=== PATIENT | female | born 1935 | race Caucasian/White ===

== ENCOUNTER 2018-11-18 12:47 | Inpatient (IN) | payer OTHER, MEDICARE ==
[~2018-11-18] VITALS: Ht 152.4 cm; Wt 48.8 kg
[2018-11-18 12:47] VITALS: BP 201/111
[2018-11-18 13:08] LABS: URINE BILIRUBIN NEGATIVE (Negative); URINE BLOOD 2+ (Negative); URINE CLARITY CLEAR; URINE COLOR YELLOW; URINE GLUCOSE-RANDOM* 3+ (Negative); URINE KETONES TRACE (Negative); URINE LEUKOCYTES-REFLEX NEGATIVE (Negative); URINE NITRITE-REFLEX NEGATIVE (Negative); URINE PROTEIN (DIPSTICK) 2+ (Negative); URINE UROBILINOGEN 0.2 E.U./dl (0.2-1.0)
[2018-11-18 13:09] LABS: ABSOLUTE NEUTROPHILS 3.9 thou/uL (1.4-8.2); BASOPHILS 0.3 % (0.0-2.0); EOSINOPHILS 1.5 % (0.0-3.0); HEMATOCRIT 33.3 % (37.0-47.0); HEMOGLOBIN 11.4 gm/dL (12.0-15.0); LYMPHOCYTES 22.1 % (24.0-44.0); MCH 31.4 pg (26.0-34.0); MCHC 34.2 g/dL (28.0-37.0); MCV 91.8 fL (80.0-100.0); MONOCYTES 8.7 % (1.0-8.0); PLATELET COUNT 325 thou/uL (150-400); POLYS 67.4 % (36.0-66.0); RBC 3.63 mil/uL (4.20-5.00); RDW 14.7 % (10.5-14.5); WBC 5.7 thou/uL (4.0-11.0)
[2018-11-18 13:15] LABS: ANION GAP 11 mmol/L (7-16); BUN 17 mg/dL (7-18); CALCIUM 9.1 mg/dL (8.5-10.1); CHLORIDE 88 mmol/L (98-107); CO2 27 mmol/L (21-32); CREATININE 0.7 mg/dL (0.6-1.0); GLUCOSE 245 mg/dL (74-106); POTASSIUM 3.6 mmol/L (3.5-5.1); SODIUM 126 mmol/L (136-145)
[2018-11-18 13:20] LABS: BACTERIA-REFLEX 1-9 Few /HPF (None Seen); CASTS None Seen /LPF (None Seen); CRYSTALS None Seen /LPF (None Seen); MUCUS >6 Heavy strn/LPF (None Seen); SQUAMOUS 4-10 Moderate /LPF (0-3); URINE RBC >20 Many /HPF (0-2); URINE WBC-REFLEX 0-5 Rare /HPF (0-5)
[2018-11-18 13:25] LABS: ALBUMIN 2.9 g/dL (3.4-5.0); MAGNESIUM 1.2 mg/dL (1.8-2.4); SGOT 25 U/L (15-37); SGPT 20 U/L (30-65); TOTAL BILIRUBIN 0.3 mg/dL (<0.1-1.0); TOTAL PROTEIN 7.8 g/dL (6.4-8.2); TROPONIN-I <0.06 ng/mL (<0.06)
[2018-11-18] MEDS ORDERED: METFORMIN HCL500 M3 PO (13:33)
[2018-11-18] MEDS ORDERED: COZAAR 25 MG TA25 M1 PO (13:34)
[2018-11-18] MEDS ORDERED: SENNA PLUS TAB1 EACH PO (13:34)
[2018-11-18] MEDS ORDERED: AMARYL2 M1 PO (13:34)
[2018-11-18] MEDS ORDERED: NEXIUM2.5 MG PO (13:34)
[2018-11-18] MEDS ORDERED: CENTRUM SILVER1 EAC6 PO (13:35)
[2018-11-18] MEDS ORDERED: OCUVITE TABLET1 EAC1 PO (13:35)
[2018-11-18] MEDS ORDERED: SUPER B-50 COM1 EACH PO (13:35)
[2018-11-18] MEDS ORDERED: CALTRATE 600+D1 EAC1 PO (13:35)
[2018-11-18] MEDS ORDERED: DULCOLAX STOOL100 M1 PO (13:35)
[2018-11-18] MEDS ORDERED: EYE DROP15 ML OPHTHALMIC (13:36)
[2018-11-18] MEDS ORDERED: PROBIOTIC1 EAC7 PO (13:36)
[2018-11-18 16:50] VITALS: BP 166/77
[2018-11-18 17:44] VITALS: BP 164/78
[2018-11-18 17:58] VITALS: BP 146/80
[2018-11-18 19:19] VITALS: BP 158/80
--- NOTE | 2018-11-18 19:20 | NUR ---
WTNESSED FALL BY THIS NURSE AND ER CHARGE NURSE GUSTAVO AROUND 1645. PT WAS NONVERBAL AND LETHARGIC PRIOR TO THE FALL, AND AFTER. LEFT SIDE HEMATOMA NOTED ON THE LEFT SIDE OF HEAD. ER PHYSICIAN AND PT PCP BOTH ASSESSED PT AT BEDSIDE IN ER POST FALL. CT OF HEAD ORDRED AND DONE. PT SISTER WAS STANDING OUTSIDE OF PT ROOM DURING FALL. NO OTHER FAMILY MEMBERS CONTACTED.
[2018-11-19] VITALS: BP 116/49
--- NOTE | 2018-11-19 02:52 | NUR ---
1900 PATIENT TO FLOOR PER CART AND TRANSFERED TO BED. FAMILY AT BEDSIDE. UNRESPONSIVE, PUPILS SLUGGISH, NO RESPONSE TO PAIN, NO MOVEMENTS. FAMILY ORIENTED TO ROOM AND FLOOR POLICIES. TURNED AND RESPOSITIONED FOR SKIN CARE AND COMFORT. RIGHT GREAT TOE DRESSING DRY AND INTACT. FAMILY REQUEST TO PEEL BACK TAKE PICTURE AND REPLACE NOT TO CHANGE. 2230 FAMILY WENT HOME. 0200 PICUTRE TAKEN OF RIGHT GREAT TOE. NO DRAINAGE NOTED. PATIENT WITH REACTION TO PAINFUL STIMULI. WILL NOT OPEN EYES BUT SQUEEZES THEM SHUT. MOVING EXTREMITIES SLOWLY WITH WEAK AUTOMATION TENDER AND PUSHES AGAINST HANDS. INCONTINENT AND CHANGES. PERICARE DONE. 0305 SLEEPING QUIETLY BUT IS NOW MOANING WHEN TURNED. NOT PROGRESSING TOWARDS DISCHARGE GOALS. WORKING ON GOALS AND PLAN OF CARE FOR NOC. CONTINUE TO MAINTAIN SAFE ENVIRONMENT AND WATCH CLOSELY.
[2018-11-19 03:48] VITALS: BP 112/45
[2018-11-19 05:30] LABS: CALCIUM 8.1 mg/dL (8.5-10.1); CREATININE 1.1 mg/dL (0.6-1.0); MAGNESIUM 2.1 mg/dL (1.8-2.4)
[2018-11-19 05:32] LABS: HEMATOCRIT 27.4 % (37.0-47.0); HEMOGLOBIN 9.7 gm/dL (12.0-15.0); MCHC 35.3 g/dL (28.0-37.0); MCV 90.6 fL (80.0-100.0); RBC 3.03 mil/uL (4.20-5.00); RDW 14.5 % (10.5-14.5); WBC 5.2 thou/uL (4.0-11.0)
[2018-11-19 05:42] LABS: POTASSIUM 2.8 mmol/L (3.5-5.1)
[2018-11-19 07:32] VITALS: BP 111/46
--- NOTE | 2018-11-19 07:48 | H ---
[facility] [place] [address] HISTORY AND PHYSICAL Name: MATHEUS TRISTAN Room #: 352-P ADM IN M.R.#: [id number] Admission: 11/18/18 Attend Phys: Daniel Rome MD Discharge: Date of : 34 Report #: [id number] THIS REPORT FOR: //name// CC: Daniel Rome DATE OF SERVICE: 11/18/2018 CHIEF COMPLAINT: Confusion. HISTORY OF PRESENT ILLNESS: The patient is an 83-year-old female who was brought to the Emergency Room by EMS today with her sister with altered mental status. She noted this morning that she was feeling weak. Her sister reported that over the last several days, her blood sugars have been a little higher and actually preparing to come and see me in the office this afternoon; however, her sister said as they were preparing that the patient was more confused. She was less verbally responsive. She seemed to be staring off with no focus then she became marginally arousable and at that point, her sister called for an ambulance and brought her to the ER. She had had a previous fall at home. Her sister said onto her right knee and thigh had a mild abrasion, but things seemed to change around noon today. PAST MEDICAL HISTORY: Diabetes type 2, hypertension, chronic hyponatremia. 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 She just completed a course of 4 weeks of IV antibiotics for osteomyelitis of the right first toe related to a previous callus debridement 6 months ago or so, she has had arterial assessment of the right leg, which was unremarkable and has been receiving IV antibiotics, Podiatry and wound care at [facility]. PAST SURGICAL HISTORY: As above. FAMILY HISTORY: Noncontributory. SOCIAL HISTORY: She lives with her sister. No chronic alcohol or tobacco use. ALLERGIES: SULFA CAUSED HYPONATREMIA AND CEPHALEXIN CAUSED HEADACHE. MEDICATIONS: Metformin, Amaryl, Cozaar, Nexium, Senokot, Colace, Centrum, B complex, vitamin D3, Ocuvite eyedrops, probiotic. REVIEW OF SYSTEMS: She is unable to give review. She just received doses of Ativan. OBJECTIVE: PHYSICAL EXAMINATION: VITAL SIGNS: Temperature 37.1, pulse 112, respirations 16, blood pressure [address] [address] HISTORY AND PHYSICAL Name: MATHEUS TRISTAN Room #: [address] [place] [address] IN .R.#: [id number] Admission: 11/18/18 Attend Phys: Daniel Rome MD Discharge: Date of : 34 Report #: [id number] 164/78, O2 sat 98% on room air. GENERAL: She is somnolent, in no distress. HEAD AND NECK: She has some dried blood on her tongue and lips. She apparently has bit her tongue. HEART: Tachycardic, regular rhythm. LUNGS: Clear to auscultation. ABDOMEN: Soft, normoactive bowel sounds. No rebound. EXTREMITIES: No edema. The right first toe has an opening into the base. There is no redness or drainage. NEUROLOGIC: Could not get her to follow any type of neuro exam. She does have a hematoma on the left posterior parietal area on the scalp. LABORATORY DATA: Urinalysis had proteins, ketones, blood, rbc's, a few white cells, bacteria and mucus. Sodium was 126, BUN and creatinine normal. Lactate a little high at 3.1, magnesium 1.2. White count was 5.7 with only a slight shift of 67% neutrophils. CT head was unremarkable. X-ray of the foot shows osteopenia. Chest x-ray suggests just atelectasis. ASSESSMENT: 1. Metabolic encephalopathy. 2. Cystitis. 3. Chronic hyponatremia. 4. Hypomagnesemia. 5. Hypertension. 6. Diabetes type 2. 7. Chronic nonhealing wound to the right first toe. PLAN: She will be admitted for IV antibiotics and IV fluid support for now. She has received electrolyte supplementation in the ER. I have spoken to her sister at the bedside. I confirmed with her Infectious Disease office that she was receiving daptomycin 300 mg IV daily. Rocephin 1 gram IV daily and Metronidazole 500 mg p.o. daily for the last 4 weeks, which she just completed on 11/16/2018. She had a PICC removed at that time. Her sister said she has had 1-2 loose bowel movements, but no recent complaints of abdominal pain or uncontrolled diarrhea. The consideration would be a new urinary source of infection versus a possible line infection versus electrolyte disturbance contributing to her altered mental status. She requires hospital admission. <ELECTRONICALLY SIGNED> By: Daniel Rome MD 11/19/18 0748 1706 1834 Daniel Rome MD /nt
--- NOTE | 2018-11-19 10:17 | EKG ---
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
[2018-11-19 12:17] VITALS: BP 147/55
[2018-11-19 15:07] LABS: CALCIUM 8.2 mg/dL (8.5-10.1); CREATININE 1.2 mg/dL (0.6-1.0); POTASSIUM 3.5 mmol/L (3.5-5.1)
--- NOTE | 2018-11-19 16:31 | NUR ---
ASSUMED CARE OF PATIENT AT 0700. VITALS STABLE. PATIENT MORE ALERT AND AROUSABLE TODAY THAN PREVIOUS SHIFT. PATIENT RECIEVED 40MEQ OF POTASSIUM TODAY AND PATIENT'S POTASSIUM ON LAST LAB DRAW IS 3.5. PATIENT TOLERATED IV ANTIBIOTICS AND POTASSIUM WELL. PATIENT HARD OF HEARING, WEARS HEARING AIDS THAT WERE NOT WITH PATIENT. MAKING PROGRESS TOWARDS DISCHAGE GOALS.
[2018-11-19 19:18] VITALS: BP 132/62
[2018-11-20 03:43] VITALS: BP 140/63
--- NOTE | 2018-11-20 04:16 | NUR ---
SLEPT PART OF SHIFT. DENIES COMPLAINTS OF PAIN. INCONTINENT X1 OF URINE. GOOD PERICARE DONE AND BARRIER CREAM USED. RADHA AREA AND COCCYX RED. TURNED FOR COMFORT AND SKIN CARE. PATIENT DOES TURN AT TIMES BY SELF. WORKING ON GOALS AND PLAN OF CARE FOR NOC. ORIENTED TO SELF, SWALLOWS WITHOUT PROBLEMS. PROGRESSING SLOWLY TOWARDS DISCHARGE GOALS.
[2018-11-20 05:17] LABS: CALCIUM 8.3 mg/dL (8.5-10.1); POTASSIUM 3.5 mmol/L (3.5-5.1)
[2018-11-20 05:39] LABS: HEMATOCRIT 27.6 % (37.0-47.0); HEMOGLOBIN 9.6 gm/dL (12.0-15.0); MCH 31.9 pg (26.0-34.0); MCHC 34.7 g/dL (28.0-37.0); RDW 14.3 % (10.5-14.5); WBC 5.3 thou/uL (4.0-11.0)
[2018-11-20 09:08] VITALS: BP 149/72
[2018-11-20 11:24] VITALS: BP 145/65
--- NOTE | 2018-11-20 15:03 | NUR ---
ASSUMED CARE OF PT AT 0700. PT AOX2. EATING WELL. INCONTINENT. NOW COMPLAINING OF LOWER BACK PAIN - PHYSICIAN NOTIFIED - XR LUMBAR SHOWING ACUTE T11 COMPRESSION FRACTURE. PATIENT NAUSEATED AT TIMES - RELIEVED WITH ZOFRAN. BLOOD SUGARS HIGH BUT SHOWING IMPROVEMENT. HOME MEDS RESUMED. FAMILY AT BEDSIDE THROUGHOUT SHIFT, AGREEABLE WITH POC. PT PROGRESSING TOWARD POC GOALS.
--- NOTE | 2018-11-20 15:45 | HC ---
[facility] [place] [address] CONSULTATION Name: MATHEUS TRISTAN Room #: 352-P ADM IN M.R.#: [id number] Admission: 11/18/18 Attend Phys: Daniel Rome MD Discharge: Date of : 34 Report #: [id number] THIS REPORT FOR: //name// CC: Daniel Rome DATE OF SERVICE: 11/19/2018 WOUND CARE CONSULTATION NOTE REASON FOR CONSULTATION: Nonhealing diabetic foot ulcer of right lateral great toe. HISTORY OF PRESENT ILLNESS: The patient is an 83-year-old woman admitted to the Emergency Room for altered mental status, metabolic encephalopathy from chronic hyponatremia. Ulcer, rule out sepsis. The patient is attended by her niece and sister. The patient is a long-term wound care patient at [facility] attended by wound care physician, Dr. Lisa Ng. The patient has diabetes mellitus type 2 and diabetic nephropathy. History given by the family is that the patient over 6 months ago had a diabetic shoe which itself caused a diabetic, neuropathic ulcer of the lateral aspect of the right great toe. This was caused by the shoe itself. This resulted in a deep wound of the foot and osteomyelitis of the toe. The patient has been treated with approximately 4 weeks of IV antibiotics by Dr. Bernabe Moraes for osteomyelitis of the foot. She had extensive wound care by Dr. Lisa Ng including use of skin substitute such as Dermagraft. The patient did have noninvasive arterial testing of the lower extremities done at [facility] with bilateral lower extremity arterial Doppler on 10/07/2018 showing normal ankle brachial indices bilaterally. There was no evidence of hemodynamically significant stenosis in the right lower extremity arterial system. In the right lower extremity, popliteal artery had a velocity of 117 cm/sec. Anterior tibial had a velocity of 151 cm/sec. Dorsalis pedis 98 cm/sec. Right ankle brachial index was 1.03 in the dorsalis pedis and 0.72 in the posterior tibial. The patient was brought now to the Emergency Room for altered mental status and immobility related possibly to hyponatremia and rule out sepsis. Family states the patient is currently in intensive wound care at [facility] and has scheduled wound care appointments. PAST MEDICAL HISTORY: 1. Diabetes mellitus type 2 with diabetic nephropathy. 2. Hypertension. 3. Chronic hyponatremia. 4. Immobility. 5. History of cystitis. 6. Hypomagnesemia. 7. Hypertension. SOCIAL HISTORY: The patient lives with her sister. No alcohol or tobacco use. [address] [address] CONSULTATION Name: HECKMATHEUS HAYWOOD Room #: 352-P [facility] IN .R.#: [id number] Admission: 11/18/18 Attend Phys: Daniel Rome MD Discharge: Date of : 34 Report #: [id number] MEDICATIONS: Include metformin, Amaryl, Cozaar, Nexium, Senokot, Colace, Centrum, B-complex vitamin, vitamin D3, Ocuvite eyedrops and probiotics. The patient just finished a course of IV antibiotics for osteomyelitis of the right great toe. REVIEW OF SYSTEMS: Not obtainable. PHYSICAL EXAMINATION: GENERAL: Shows an elderly woman, resting comfortably. HEENT: Mucous membranes are moist. NECK: Supple. ABDOMEN: Soft. EXTREMITIES: Lower extremity exam shows a defect of the lateral aspect of the right great toe. This measures approximately 1.5 cm x 1 cm x 0.5 cm deep. There is dry non-discolored eschar at the base of the wound. There is no cellulitis. There is no drainage. Wound appears chronic. IMPRESSION: 1. Admission for altered mental status and hyponatremia. 2. Diabetes mellitus type 2 with peripheral neuropathy. 3. Rule out sepsis, possible complicated urinary tract infection causing sepsis. 4. History of diabetic foot ulcer of the right great toe with osteomyelitis. Osteomyelitis has been treated with IV antibiotics. Wound is now stable with no drainage, no sign of cellulitis and no obvious open wound with dry crusted eschar. This wound is stable, does not require treatment while in the hospital. We will simply treat by offloading with Optifoam foam pad and diabetic shoe. Toe wound is not the source for sepsis. The patient will return to see her wound care physician, Dr. Lisa Ng at [facility] for outpatient wound care as soon as she is discharged from the hospital here and we will not actively pursue further diagnostic or therapeutic measures for the toe during the hospitalization. <ELECTRONICALLY SIGNED> By: Deion Baugh MD 11/20/18 1545 0847 0936 Deion Baugh MD /nt
[2018-11-20 16:53] VITALS: BP 178/82
[2018-11-20 19:23] VITALS: BP 113/54
[2018-11-21 01:05] LABS: GLYCOHEMOGLOBIN (HGB A1C) 7.9 % (4.8-5.6)
[2018-11-21 03:51] VITALS: BP 158/64
--- NOTE | 2018-11-21 04:16 | NUR ---
Pt. has slept well during the night. orineted to person only. [place] and wears hearing aid. She has been repositioned for comfort. Incontinent of bladder. Able to help turn. Dressing on right foot dry and intact. Ortho shoe in place. Will continue to monitor.
[2018-11-21 07:22] VITALS: BP 188/84
[2018-11-21 10:22] LABS: CALCIUM 7.9 mg/dL (8.5-10.1); CREATININE 0.9 mg/dL (0.6-1.0); POTASSIUM 3.5 mmol/L (3.5-5.1)
[2018-11-21 11:26] VITALS: BP 182/82
--- NOTE | 2018-11-21 14:15 | NUR ---
INITIAL ASSESSMENT: Received consult for discharge planning--possible placement. NOAH reviewed chart and spoke with nursing and attending physician. Pt was admitted from home due to hyperglycemia/AMS. Pt with hx of recent falls at home. Pt with T11 compression fx. PT/OT/ST ordered to evaluate pt. [facility] consult ordered to evaluate pt for admission to in acute rehab. NOAH met with pt and her sister at bedside. Introduced role of SW. Pt is alert/orientated. Pt lives at home with her sister, who is in good health and able to assist as needed. Pt has a cane, walker and w/c at home. Pt's sister states that pt is relying on her w/c and has not been ambulating very much. There is a ramp to get into their home. No steps inside. Pt has used [facility] in the past. Pt's PCP is Dr. Daniel Rome. NOAH discussed post-acute placement with pt's sister. Pt's sister is hopeful that [facility] will accept pt. NOAH provided pt's sister with list of SNFs for review as well. Awaiting input from [facility]. NOAH is following to assist as needed with discharge planning.
[2018-11-21 15:47] VITALS: BP 178/77
[2018-11-21] MEDS ORDERED: COLACE100 MG PO (17:15)
[2018-11-21 19:39] VITALS: BP 178/77
[2018-11-22 03:29] VITALS: BP 123/65
--- NOTE | 2018-11-22 06:22 | NUR ---
FOLLOWING POC WITH [facility]. PT IS A/OX2 BUT HAS SOME CONFUSION. PT SPEAKS WELSH/TELUGU. BED BOUND AND HAS DIABETIC ULCER ON R GREAT TOE. PT IS INCONTINENT TO B/B. VSS AND TELE MONITOR PT RUNS SR. PT CAN TURN HERSELF IN BED. HOURLY ROUNDING.
[2018-11-22 07:50] VITALS: BP 148/50
--- NOTE | 2018-11-22 11:19 | NUR ---
PATIENT SEEN BY DR. TOM ON 11/21/18. AWAITING COMPLETION OF ALL THERAPY EVALUATIONS. WILL CONTINUE TO FOLLOW. THANK YOU FOR THIS REFERRAL.
[2018-11-22 11:24] VITALS: BP 166/59
--- NOTE | 2018-11-22 12:42 | NUR ---
SW reviewed chart and spoke with nursing and attending physician. Pt had video swallow earlier today. Awaiting input from [facility] at this time. SW updated pt's sister at bedside. Pt's family is hopeful for pt to go to [facility]. SW is following to assist as needed with discharge planning.
[2018-11-22] MEDS ORDERED: ACETAMINOPHEN325 M1 PO (13:07)
[2018-11-22 16:35] VITALS: BP 163/61
--- NOTE | 2018-11-22 16:56 | NUR ---
Assumed care approx. 0700 this AM. Patient oriented to self and place. Patient feeding self independently with set up help. Swallow study completed with results fine per OT, but still continue to monitor for aspiration precautions. Patient up with gait belt and walker x1 with therapy, refusing to sit in recliner. Picture taken of wound on right great toe to prepare for discharge. Wound care completed by Dr. Taylor and Josue from wound care. Plan for patient to advance to [address] [place] [address] rehab today when room is ready. Will continue to monitor. Patient progressing toward plan of care.
--- NOTE | 2018-11-23 07:47 | P ---
[facility] [place] [address] PROCEDURE REPORT Name: MATHEUS TRISTAN Room #: 352-P [facility] IN M.R.#: [id number] Admission: 11/18/18 Attend Phys: Daniel Rome MD Discharge: 11/22/18 Date of : 34 Report #: [id number] THIS REPORT FOR: //name// CC: Daniel Rome DATE OF SERVICE: 11/22/2018 CHIEF COMPLAINT: Diabetic neuropathic ulcerations to the right great toe. POSTPROCEDURE DIAGNOSIS: Diabetic neuropathic ulcerations to the right great toe. PROCEDURE PERFORMED: Sharp full thickness surgical debridement of the ulceration of the right great toe. Preprocedure measurements of the ulceration were 0.5 x 0.3 x 0.1 cm. Postprocedure measurements 1.0 x 0.3 x 0.2 cm. After obtaining verbal consent with the patient and her daughter at the bedside, the area was prepped and draped in usual sterile fashion. No anesthesia was required. I have used a #15 bladed scalpel and have carefully removed both skin and subcutaneous tissue down to a healthy clean bleeding base. The patient tolerated the procedure well with no pain. Estimated blood loss was less than 1 mL. COMPLICATIONS: None. <ELECTRONICALLY SIGNED> By: Lizandro Taylor MD 11/23/18 0747 1702 0427 Lizandro Taylor MD /nt
--- NOTE | 2018-11-23 09:17 | D ---
[facility] [place] [address] DISCHARGE SUMMARY Name: MARIA R HERMATHEUS Room #: 352-P [facility] IN M.R.#: [id number] Admission: 11/18/18 Attend Phys: Daniel Rome MD Discharge: 11/22/18 Date of : 34 Report #: [id number] THIS REPORT FOR: //name// CC: Daniel Rome FINAL DIAGNOSES: 1. Acute metabolic encephalopathy, unclear etiology. 2. Acute T11 vertebral compression fracture. 3. Diabetes type 2. 4. Nonhealing wound to the right first toe. HOSPITAL COURSE: The patient was admitted through the ER from home with altered mental status. Working diagnosis at that time was infection and possible urinary source or related PICC line source that had been removed 2 days prior. She previously completed approximately 4 weeks of IV antibiotics as an outpatient through [facility] for osteomyelitis of an open wound on the right toe. Urine and blood cultures were negative. She was followed by Infectious Disease Service and eventually antibiotics were discontinued. Urinary antigens for pneumonia issues were negative as well. Her hyponatremia was treated with normal saline and then resolved and sodium was 133 to 134 at the time of discharge. Her mental status improved by the end of the second day once the Ativan had worn off from the ER. There was no definitive source identified for her acute change in mental status, but she was back to baseline. PHYSICAL EXAMINATION: GENERAL: On the day of discharge, she was awake and alert. VITAL SIGNS: Stable. LUNGS: Clear. HEART: Regular. ABDOMEN: Soft, normoactive bowel sounds. EXTREMITIES: No edema with the right first toe wound dressed. DISPOSITION: She will be transferred to [address] [place] [address] Inpatient Rehabilitation under the care of Dr. Barron. I will follow her stay there. She will have speech, occupational and physical therapy. She had previously passed a swallow test. I have ordered her transfer medications. <ELECTRONICALLY SIGNED> By: Daniel Rome MD 11/23/18 0917 1325 1413 Daniel Rome MD /nt
--- NOTE | 2018-11-30 14:33 | HC ---
[facility] [place] [address] CONSULTATION Name: MATHEUS TRISTAN Room #: 352-P [facility] IN M.R.#: [id number] Admission: 11/18/18 Attend Phys: Daniel Rome MD Discharge: 11/22/18 Date of : 34 Report #: [id number] THIS REPORT FOR: //name// CC: Daniel Rome DATE OF SERVICE: 11/21/2018 HISTORY OF PRESENT ILLNESS: The patient is an 83-year-old female admitted with mental status changes, elevated blood sugar, decreased verbalizations, diagnosed with a metabolic encephalopathy with cystitis, chronic hyponatremia, hypomagnesemia, and hypertension. She is noted to have a T11 compression fracture. She has right first toe osteomyelitis and has been on IV antibiotics. She has been noted to have a functional decline with her metabolic encephalopathy and has generalized weakness and debilitation as well. We are seeing her in Rehabilitation Medicine consultation. 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 MEDICATIONS: Please see the full medication listing. FAMILY HISTORY: Noncontributory. ALLERGIES: SULFA CAUSED HYPONATREMIA AND KEFLEX CAUSED HEADACHE. SOCIAL HISTORY: She lives with her sister and her niece, apparently utilized a cane or walker or wheelchair premorbidly, but is not ambulated much and has been more and more wheelchair bound. She does have a ramp to get in. I am uncertain how much the sister or the niece are involved with her cares. REVIEW OF SYSTEMS: Somewhat difficult with her being quite hard of hearing and with the language barrier. PHYSICAL EXAMINATION: GENERAL: An 83-year-old female, in no obvious distress, pleasant, very hard of hearing, definite latency to her responses. VITAL SIGNS: Temperature is 98, pulse 74, respirations 17, blood pressure 182/82. NEUROLOGIC: She is alert. She will follows basic 1 step commands. Facies are symmetric. EXTREMITIES: She has functional range of motion of both upper extremities. Strength is grade 3+ to 4-/5. DTRs are trace to 1. Lower extremities, she does have a right walking shoe in place, which appears to be a postoperative shoe with her prior noted first toe osteomyelitis. There is no focal calf swelling. Functional range of motion with strength grade 3+/5 to 4-/5. Left lower [facility] [address] [place] [address] CONSULTATION Name: MATHEUS TRISTAN Room #: 352-P [facility] IN ..#: [id number] Admission: 11/18/18 Attend Phys: Daniel Rome MD Discharge: 11/22/18 Date of : 34 Report #: [id number] extremity functional range of motion with 3+ to 4-/5. DTRs are trace to 1. ASSESSMENT: An 83-year-old female with the following problem list: 1. Metabolic encephalopathy. 2. Medical complexity with generalized debilitation. 3. Chronic hyponatremia. 4. Hypomagnesemia. 5. Right first toe osteomyelitis. 6. Diabetes mellitus, type 2. 7. Urinary tract infection. 8. Hypertension. 9. T11 compression fracture. PLAN: Therapy evaluations are underway. We will have to see how the patient tolerates her therapies. Rehab unit beds are currently tight, but we will be glad to follow along with you regarding her rehab therapy needs. Thank you for asking us to assist in this patient's care. <ELECTRONICALLY SIGNED> By: Daniel Barron MD 11/30/18 1433 [id number] [id number] Daniel Barron MD /[facility]
== END 2018-11-22 20:20 | DRG 622 ==
LOC: EDBD 12:47 → ER 12:47 → 3W 15:35 → EROBS 15:35 → 3W 18:28
PROVIDERS: Emergency Medicine; Internal Medicine Infectious Disease; ADMIT Internal Medicine Geriatric Medicine
PROC: 0JBQ0ZZ Excision of Right Foot Subcutaneous Tissue and Fascia, Open Approach (ICD-10-PCS; principal; 2018-11-22)
DX: E11.69 Type 2 diabetes mellitus with other specified complication (principal); G93.41 Metabolic encephalopathy; E87.1 Hypo-osmolality and hyponatremia; E44.0 Moderate protein-calorie malnutrition; M48.54XA Collapsed vertebra, not elsewhere classified, thoracic region, initial encounter for fracture; M86.8X7 Other osteomyelitis, ankle and foot; N30.90 Cystitis, unspecified without hematuria; E83.42 Hypomagnesemia; I10 Essential (primary) hypertension; E11.65 Type 2 diabetes mellitus with hyperglycemia; E11.42 Type 2 diabetes mellitus with diabetic polyneuropathy; E11.621 Type 2 diabetes mellitus with foot ulcer; L97.519 Non-pressure chronic ulcer of other part of right foot with unspecified severity; Z68.21 Body mass index [BMI] 21.0-21.9, adult; Z79.84 Long term (current) use of oral hypoglycemic drugs; Z79.899 Other long term (current) drug therapy; Z88.2 Allergy status to sulfonamides; Z88.8 Allergy status to other drugs, medicaments and biological substances
CPT/HCPCS: 10879

== ENCOUNTER 2018-11-22 13:27 | Inpatient (IN) | payer OTHER, MEDICARE ==
[~2018-11-22] VITALS: Ht 152.4 cm; Wt 44.0 kg
[~2018-11-22 13:27] MED LIST: ACETAMINOPHEN325 M1 PO; AMARYL2 M1 PO; CALTRATE 600+D1 EAC1 PO; CENTRUM SILVER1 EAC6 PO; COLACE100 MG PO; COZAAR 25 MG TA25 M1 PO; DULCOLAX STOOL100 M1 PO; EYE DROP15 ML OPHTHALMIC; METFORMIN HCL500 M3 PO; NEXIUM2.5 MG PO; OCUVITE TABLET1 EAC1 PO; PROBIOTIC1 EAC7 PO; SENNA PLUS TAB1 EACH PO; SUPER B-50 COM1 EACH PO
[2018-11-22 20:30] VITALS: BP 151/45
[2018-11-22 22:31] VITALS: BP 151/45
--- NOTE | 2018-11-23 00:41 | NUR ---
PT ADMITTED TO [address] [place] [address] THIS EVENING FOR STRENGTHING. SUPPORTIVE FAMILY AT BEDSIDE EARLY DURING THE SHIFT. PT NEEDS TO BE ENCOURAGED TO USE HER WORDS. VERY PLEASANT AND SPEAKS EMIRATI. GROIN EXTREMELY FUNGAL. APPLIED FUNGAL CREAM AND TOOK A PICTURE FOR RECORDS. EXTERNAL CATH THIS EVENING HELPFUL SINCE PT IS INC OF URINE AT THIS TIME. ASST WITH REPOSITION FOR COMFORT. SCATTERED BRUISES ON SKIN. LEFT FA IV INTACT AND WORKING WELL. SAT WNL ON RA. PT ADMIT AND ASSESSMENT COMPLETED. VSS. FALL PRECAUTIONS IN PLACE. SLEEPING WELL. WILL CONTINUE TO MONITOR FREQUENTLY.
[2018-11-23 05:30] LABS: HEMATOCRIT 27.9 % (37.0-47.0); HEMOGLOBIN 9.7 gm/dL (12.0-15.0); MCH 31.7 pg (26.0-34.0); MCHC 34.8 g/dL (28.0-37.0); MCV 91.2 fL (80.0-100.0); RBC 3.06 mil/uL (4.20-5.00); WBC 5.9 thou/uL (4.0-11.0)
[2018-11-23 05:44] LABS: CALCIUM 8.4 mg/dL (8.5-10.1); CREATININE 0.7 mg/dL (0.6-1.0)
[2018-11-23 08:00] VITALS: BP 150/61
--- NOTE | 2018-11-23 14:20 | NUR ---
chart review, pt working with physical therapy. little to no eye contact. cm spoke with pt sister ranjeet via phone call, " lives with sister, had to put in ramp at home because cleo becoming more weaker and having to use wheel chair. has a cane and walker. 3 steps intro house and 1 step into house. been on service with [facility] and wound care."/ranjeet. intro to cm, transition of care, and team meeting. will cont following as needed for dc needs.
[2018-11-23 19:20] VITALS: BP 163/74
--- NOTE | 2018-11-24 02:21 | NUR ---
PT ASSESSMENT COMPLETED AND VSS. MEDS GIVEN ORDERED AND WELL TOLERATED. FALL PRECAUTIONS IN PLACE. FEMALE EXTERNAL CATH IN PLACE DUE TO SEVERE FUNGAL GROIN. ASST WITH FREQUENT REPOSITION FOR COMFORT. PT DOES NOT RESPOND MUCH WHEN ASKING HER QUESTIONS. IT IS UNCLEAR HOW MUCH SHE UNDERSTANDS. SLEEPING WELL. FUNGAL CREAM APPLIED TO GROIN SEVERAL TIMES DURING SHIFT. WILL CONTINUE TO MONITOR FREQUENTLY.
[2018-11-24 09:10] VITALS: BP 165/76
--- NOTE | 2018-11-24 17:03 | NUR ---
ASSUMED CARES AT 0700. PT ORIENTED TO PERSON ONLY, CONFUSED AND FORGETFUL. DENIES PAIN. C/O NAUSEA, INDIGESTION AND HEARTBURN, ORDERS RECEIVED TO START NEXIUM. VITALS REMAIN STABLE. CONTINUES TO HAVE IRRITATED AND REDDENED SKIN AROUND GROIN AND SACRAL AREA, NYSTATIN POWDER APPLIED. RIGHT TOE WOUND DRESSING REMAINS DRY AND INTACT. PT REMAINS INCONTINENT OF B&B. ASPIRATION PRECAUTIONS MAINTAINED. CHEST XRAY ORDERED (SEE IMAGING FOR RESULTS). PT UP WITH 1 MOD-MAX ASSIST, GB, WALKER AND W/C AND TOLERATED WELL. Q1H VISUAL CHECKS. CALL LIGHT WITHIN REACH. FALL PRECAUTIONS IN PLACE
[2018-11-24 19:30] VITALS: BP 124/58
--- NOTE | 2018-11-25 00:26 | NUR ---
PT ASSESSMENT DONE AND VSS. MED GIVEN AND WELL TOLERATED. FALL PRECAUTIONS IN PLACE. NYSTATIN APPLIED ORDERED TO GROIN AREA. GROIN HEALING. EXTERNAL FEMALE AUBREY ALSO IN PLACE OVERNIGHT. FAMILY HERE BEFORE SHIFT CHANGE. LEFT DURING SHIFT CHANGE. WILL BRING IN PT HOME NEXIUM. PT SLEEPING WELL OVERNIGHT. HOURLY ROUNDING. WILL CONTINUE TO MONITOR.
[2018-11-25 05:07] LABS: CALCIUM 8.7 mg/dL (8.5-10.1); CREATININE 0.6 mg/dL (0.6-1.0); POTASSIUM 4.1 mmol/L (3.5-5.1)
[2018-11-25 08:51] VITALS: BP 154/61
--- NOTE | 2018-11-25 15:15 | NUR ---
OUT OF ROOM FOR MEALS THIS SHIFT-TRANSFERS TO WITH SBA X1-DENIES C/O PAIN WHEN ASKED. PERINEAL AREA IS NOTED TO BE REDDENED AND NYSTATIN APPLIED PER ORDER. TAKES MEDS WHOLE IN APPLESAUCE. SISTER AT BEDSIDE AND REPORTS THAT HOSPITAL SUBSTITE FOR GERD IS NOT WORKING-NEXIUM BROUGHT IN FROM HOME AND SENT TO PHARMACY. BS AT 0700 189-AT 1130 309-ORAL HYPOGLYCEMICS AND INSULIN GIVEN PER ORDER
--- NOTE | 2018-11-25 15:33 | NUR ---
WOUND CARE FOLLOW UP; ROUNDING WITH DR SHERIFF TODAY. THE WOUND IS UNCHANGED. CONTINUE POC DISCUSSED WITH STEVE
[2018-11-25 19:30] VITALS: BP 149/59
--- NOTE | 2018-11-25 23:06 | NUR ---
PT ASSESSMENT DONE AND VSS. MED GIVEN AND WELL TOLERATED. NYSTATIN POWDER USED ORDERED TO RADHA AREA. REDNESS GREATLY DECREASED. FALL PRECAUTIONS IN PLACE. FAMILY AT BS UNTIL SHORTLY AFTER SHIFT CHANGE. CALL LIGHT AT BS. HOURLY ROUNDING DONE. EXTERNAL FEMALE CATHETER IN PLACE OVERNIGHT. WILL CONTINUE TO MONITOR.
[2018-11-26 07:24] VITALS: BP 172/55
[2018-11-26 11:36] VITALS: BP 126/60
--- NOTE | 2018-11-26 15:54 | NUR ---
ASSUMED CARES AT 0700. PT AWAKE, ORIENTED TO PERSON ONLY. PT HELD HER ABDOMEN AND GRIMANCED AND STATED , "IT HURTS", ABDOMEN IS DISTENDED WITH HYPOACTIVE BS. LAST CHARTED BM 11/23. DUCOLAX SUPP. ADMINISTERED AND PT HAD A MED BM. DENIES PAIN IN RIGHT TOE. DRESSING ON RIGHT TOE REMAINS DRY AND INTACT. PT REMAINS NON-TOE TOUCH WEIGHT BEARING ON RLE, DOES NOT TOLERATE WELL. PT REMAINS INCONTINENT OF B&B. RADHA AREA AND SACRAL AREAS REMAIN EXCORIATED, NYSTATIN POWDER APPLIED. PT REPOSITONED Q2H. UP IN THE CHAIR FOR ALL MEALS, SUPERVISION WITH ALL MEALS. Q1H VISUAL CHECKS. CALL LIGHT WITHIN REACH. FALL PRECAUTIONS IN PLACE
[2018-11-26 19:15] VITALS: BP 152/61
--- NOTE | 2018-11-27 00:10 | NUR ---
Care assumed of patient at 1915: Patient alert and oriented to person. Forgetful and confusion noted. Patient has primarily been non-verbal this shift. Patient using hand gestures to make wants/needs known. Patient incontinent x1 this evening. [place] care completed, Nystatin powder applied per MD order. Patient requires mod assist for drinking. Patient requires max assist for bed mobility, dressing, toileting needs. No s/s of pain or discomfort observed this shift. Patient has been turned q2 hours and PRN. Patient removed hearing aid and it is placed on bedside table. Call light within reach. Bed alarm is on at this time. Patient has declined to get out of bed this shift and has been kept comfortable laying in bed. Dressing in place to left foot. No drainage observed.
[2018-11-27 10:17] VITALS: BP 178/77
--- NOTE | 2018-11-27 15:52 | NUR ---
ASSUMED CARE OF PT AT 0715. PT IS ALERT AND RESPONDS TO HER NAME, UNRESPONSIVE TO QUESTIONS AND COMMANDS FROM NURSING. ACCU CHECKS ACHS AND MANAGED WITH INSULIN AND PO MEDICAITONS. NO APPARENT PAIN. DRESSING CHANGED TO LEFT GREAT TOE. EXCORIATION TO GROIN, NYSTATIN APPLIED. MEDICATIONS WHOLE IN APPLESAUCE. DAUGHTER REFUSED TO HAVE LARGE PILLS CUT IN HALF AT NURSES RECOMMENDATION. WOULD RECOMMEND CUTTING LARGE PILLS IN HALF, PT HAD COUGHING AND FREQUENT SWALLOWS WHEN ATTEMPTING TO SWALLOW LARGER PILLS IN APPLESAUCE. FALL PRECAUTIONS IN PLACE AND NURSING WILL CONTINUE TO MONITOR.
[2018-11-27 19:00] VITALS: BP 127/46
--- NOTE | 2018-11-28 01:39 | NUR ---
PT ALERT AND ORIENTED X 1. INCONT OF URINE. RADHA-AREA RED. NYSTATIN POWDER APPLIED. PT DENIES PAIN OR DISCOMFORT. BED ALARM ON FOR SAFETY. PT APPEARS TO BE SLEEPING ON HOURLY ROUNDS.
[2018-11-28 07:40] VITALS: BP 164/79
[2018-11-28 19:10] VITALS: BP 165/71
--- NOTE | 2018-11-28 19:25 | NUR ---
ASSUMED CARES AT 0700. PT ORIENTED TO PERSON ONLY. NON-VERBAL. DENIES PAIN. VITALS REMAIN STABLE. CONTINUES TO HAVE EXCORIATED SKIN AROUND GROIN AND SACRAL AREA, NYSTATIN POWDER APPLIED PER ORDER. PT CONTINUES TO BE INCONTINENT OF B&B, CLEANED AND PERICARE COMPLETED WITH EVERY INCONTINENT/BATHROOM USE. WOUND ON RIGHT BIG TOE CLEANED AND DRESSING CHANGED. PT UP WITH 1 MIN ASSIST, GB AND WALKER, ORTHO BOOT IN PLACE. Q1H VISUAL CHECK. CALL LIGHT WITHIN REACH. FALL PRECAUTIONS IN PLACE
--- NOTE | 2018-11-29 00:41 | NUR ---
PT ASSESSMENT DONE AND VSS. MED GIVEN AND WELL TOLERATED. FALL PRECAUTIONS IN PLACE. FEMALE CATHETER APPLIED AT HS. HOURLY ROUNDING DONE. CALL LIGHT AT BS. SLEEPING WELL. WILL CONTINUE TO MONITOR.
[2018-11-29 07:55] VITALS: BP 128/68
--- NOTE | 2018-11-29 10:43 | NUR ---
LATE ENTRY QI UPDATE: ON 11/22 THROUGH 11/24, PT WAS TOTALLY INCONTINENT OF BOWEL AND BLADDER PER NURSING REPORT. TIMED TOILETING TO ENSUE, AND IRFPAI HAS BEEN UPDATED.
--- NOTE | 2018-11-29 11:12 | NUR ---
ASSUMED CARE AT 0700. PATIENT IS ALERT AND ORIENTED X2-3. PATIENT BLOOM, BUT HAS LEFT SIDED WEAKNESS AND HAS FORGETFULNESS. PATIENT IS VERY SLEETMUTE. HEARIN AIDS IN. LUNGS ARE CLEAR AND DEMINISHED. ABD IS SOFT WITH BSX4. LAXATIVES GIVEN FOR NO BM. PATIENT IS UP WITH GAIT BELT AND WALKER. DAUGHTER AT BEDSIDE. ENCOURAGED PO FLUIDS. FALL AND SAFETY PROTOCOLS IN PLACE. DENIES PAIN AT THIS TIME. CONTINUES TO PROGRESS SLOWLY TOWARDS D/C GOALS. WILL CONTINUE TO MONITER.
--- NOTE | 2018-11-29 12:42 | NUR ---
TEAM MTG: KEKE 12/09/18 RETURN HOME VS SNF. RETEAM NEXT TU.
--- NOTE | 2018-11-29 13:38 | NUR ---
ASSUMED CARE AT 0700. PATIENT IS ALERT AND ORIENTED. PATIENT IS SPAINISH SPEAKING,BUT UNDERSTANDS NIUEAN. PATIENT IS A TURN Q 2 HOURS. PATIENT IS UP TO THE BSC WITH ASSIST OF 2 STAFF. PATIENT HAS FUNGAL RASH IN HER GROIN AREA. RIGHT TOE WOUND HAS GENTAMYCIN OINTMENT APPLIED. UP TO THE DINING ROOM FOR MEALS. FALL AND SAFETY PROTOCOLS IN PLACE. C/O CRUZ PAIN. MEDICATED WITH PRN PAIN MED. CONTINUES TO PROGESS TOWARDS D/C GOALS.
--- NOTE | 2018-11-29 17:00 | NUR ---
PT/FAMILY CONCERN: REINIER NAVARRO AND [place] MET WITH PATIENT AND FAMILY REGARDING SISTER WILL'S CONCERNS ABOUT THE RESULTS OF THE MOST RECENT CT SCAN. THESE RESULTS HAD BEEN SHARED WITH HER EARLIER BY NAPOLEON FLORES NP FOR DR. TOM UNDER HIS DIRECTION. PT'S SISTER WILL WAS ABLE TO STATE HER WORRIES, AND CONCERNS, AND FOLLOWUP CALL WAS PLACED TO THE NEUROSURGERY GROUP REGARDING THE CONSULT THAT WAS ORDERED THE PREVIOUS DAY. THE NURSE PRACTITIONER FOR DR. ARAGON CAME TO THE ROOM TO ASSESS THE PATIENT, AND SHE ALSO PROVIDED EDUCATION TO THE PATIENT AND HER SISTER WILL REGARDING SDH, AND THE RECOVERY PROCESS AND PLAN GOING FORWARD FOR HER CARE. PT'S SISTER VERBALIZED UNDERSTANDING OF ALL OF THE INFORMATION THAT WAS GIVEN TO HER, AND STATED THAT THE CARE THAT THE PT RECIEVED ON THE REHAB UNIT WAS EXCELLENT. TEAM CONFERENCE RESULTS WERE REVIEWED, AND WILL WAS INFORMED OF THE TENTATIVE DC DATE OF 12/09, BUT THAT THIS WAS ONLY TENTATIVE, BASED ON HER SISTER'S PROGRESS AND SAFE DC PLAN FOR HOME. WILL STATED THAT SHE PLANS TO HELP HER SISTER ALL THE TIME AT HOME, AND THAT SHE WILL BE HERE FOR ANY TRAINING THAT WE NEED TO DO CLOSER TO DISCHARGE.
[2018-11-29 19:15] VITALS: BP 107/47
--- NOTE | 2018-11-30 00:07 | NUR ---
PT ASSESSMENT DONE AND VSS. MED GIVEN AND VSS. FALL PRECAUTIONS IN PLACE. SLEEPING WELL. HOURLY ROUNDING DONE. CALL LIGHT AT BS. WILL CONTINUE TO MONITOR.
[2018-11-30 08:15] VITALS: BP 111/54
--- NOTE | 2018-11-30 18:18 | NUR ---
ASSUMED CARES AT 0700. PT ORIENTED TO PERSON ONLY. DENIES PAIN. VITALS REMAIN STABLE. PT CONTINUES TO HAVE REDNESS AROUND RADHA-AREA, CLOTRIMAZOLE ADMINISTERED PER ORDER, GREAT IMPROVEMENT NOTED ON THE SITE. PT REMAINS INCONTINENT OF BOWEL AND BLADDER, RADHA CARE COMPLETED AND CREAM REAPPLIED NEEDED. RIGHT TOE WOUND CLEANED AND DRESSING CHANGED. PT UP WITH 1 MOD ASSIST, AMBULATED SHORT DISTANCES, BOOT IN PLACE ON BLE. Q1H VISUAL CHECKS. CALL LIGHT WITHIN REACH. FALL PRECAUTIONS IN PLACE
[2018-11-30 19:20] VITALS: BP 141/63
--- NOTE | 2018-12-01 01:31 | NUR ---
PT ALERT AND ORIENTED X 1. INCONT OF URINE. DRESSING TO RIGHT FOOT C/D/I. PT DENIES PAIN OR DISCOMFORT. BED ALARM ON FOR SAFETY. PT APPEARS TO BE SLEEPING ON HOURLY ROUNDS.
[2018-12-01 05:44] LABS: CALCIUM 8.5 mg/dL (8.5-10.1); CREATININE 0.8 mg/dL (0.6-1.0)
[2018-12-01 10:51] VITALS: BP 137/46
--- NOTE | 2018-12-01 11:04 | NUR ---
ASSUMED CARE AT 0700. PATIENT IS ALERT AND ORIENTED, BUT FORGETFUL AND SPEAKS MALDIVIAN. PATIENT HEAD BANQUET WAITRESS ARE EQUAL. LUNGS ARE CLEAR AND DEMINISHED. ABD IS SOFT WITH BSX4. PATIENT IS UP WITH WALKER, GAIT BELT AND ASSIST OF 1 STAFF WITH WALKER. UP IN CHAIR FOR MEALS. FALL AND SAFETY PROTOCOLS IN PLACE. C/O CRUZ. MEDICATED WITH PO PRN PAIN MED. FAMILY AT BEDSIDE. CONTINUES TO PROGESS TOWARDS D/C GOALS. WILL CONTINUE TO MONITER.
[2018-12-01 20:00] VITALS: BP 156/67
--- NOTE | 2018-12-02 02:51 | NUR ---
PT ALERT AND ORIENTED X 1. DRESSING RIGHT FOOT C/D/I. PT INCONT OF URINE. PT C/O PAIN IN HER RIGHT SIDE. TYLENOL GIVEN ORDERED. BED ALARM ON FOR SAFETY. PT APPEARS TO BE SLEEPING ON HOURLY ROUNDS.
[2018-12-02 09:43] VITALS: BP 151/71
--- NOTE | 2018-12-02 18:50 | NUR ---
ASSUMED CARES AT 0700. PT ORIENTED TO SELF ONLY. C/O MILD NECK PAIN, ACETAMINOPHEN ADMINISTERED NEEDED. VITALS REMAIN STABLE. PT'S SISTER NOTICED A DISCOLOURATION/ LUKAS ON PT RIGHT EYE (ON THE WHITE OF THE EYE), UNABLE TO ASSESS PT FARTHER R/T MENTAL STATUS. WOUND ON LEFT FOOD CLEANED AND DRESSING CHNAGED. PT REMAINS INCONTINENT OF BB. Q1H VISUAL CHECKS. CALL LIGHT WITHIN REACH FALL PRECAUTIONS IN PLACE
[2018-12-02 19:47] VITALS: BP 121/57
--- NOTE | 2018-12-03 04:03 | NUR ---
ASSUMED PATIENT CARE AT SHIFT CHANGE. PATIENT IS ALERT ONLY TO PERSON. ASSESSMENT CHARTED. FLACC PAIN SCALE USED TO ASSESS PAIN AND INDICATED NO PAIN. PATIENT WAS ASKED IN COMORAN AND MAORI IF SHE HAD PAIN AND HAD NO COMPLAINTS. PATIENT HAD AN EPISODE OF INCONTINENCE AT APPROX. 2300. PATIENT WAS GIVEN AN EXTERNAL FEMALE INCONTINENCE SYSTEM TO HELP LESSEN MOISTURE. BARRIER CREAM APPLIED TO GROIN SITE. FALL PRECAUTIONS IN PLACE. WILL CHECK ON THIS PATIENT Q1HR. WILL CONTINUE TO MONITOR AND FOLLOW POC.
--- NOTE | 2018-12-03 09:45 | NUR ---
ASSUMED CARE AT 0700. PATIENT IS ALERT AND ORIENTED TO PERSON. PATIENT SPEAKS [place] HELEN[place],BUT UNDERSTANDS CANADIAN. PATIENT BLOOM'S, HUMID SYSTEM OPERATOR ARE EQUAL. PATIENT HAS RIGHT FOOT WOUND. DRESSING CHANGED. PATIENT IS UP TO BATHROOM WITH ASSIST OF 1 STAFF AND GAIT BELT AND WALKER TO BATHROOM TO VOID CARRI COLORED URINE. PATIENT RADHA AREA CONTINUES TO IMPROVE WITH OINTMENT APPLIED. OUT TO THE DINING ROOM PER W/C WITH ORTHO SHOE IN PLACE. FALL AND SAFETY PROTOCOLS IN PLACE. DENIES ANY CRUZ PAIN AT THIS TIME. CONTINUES TO PROGRESS TOWARDS D/C GOALS. WILL CONTINUE TO MONITER.
[2018-12-03 10:43] VITALS: BP 171/65
--- NOTE | 2018-12-03 18:35 | HC ---
[facility] [place] [address] CONSULTATION Name: MARIA R HERMATHEUS Room #: 510-P ADM IN M.R.#: [id number] Admission: 11/22/18 Attend Phys: Daniel Barron MD Discharge: Date of : 34 Report #: [id number] THIS REPORT FOR: //name// CC: Daniel Barron DATE OF SERVICE: 11/27/2018 ATTENDING PHYSICIAN: Daniel Barron MD RINK RAT: Esequiel Harrell, PhD CLINICAL PRESENTATION: The patient is an 83-year-old female admitted to the rehabilitation unit for comprehensive inpatient rehabilitation program. She was initially admitted to the hospital through the ER with a diagnosis of an acute encephalopathy and urinary tract infection. She also had a longstanding wound to the right great toe, which has been difficult to heal and requiring extended wound care. She is reported to have sustained a fall while in the Emergency Room and noted to have a T11 compression fracture. The patient lives with her sister and a niece. Her sister indicates that since May 2018, she has had a significant deterioration in functioning that is attributed to be difficult to treat wound to her toe. For the last 4-1/2 weeks, she is described as having required help with basic activities of daily living. Her family is concerned about the extent of depression and her not putting as much effort and motivation into her recovery. She has had multiple Emergency Room visits in the last several months. Her medical problem list includes acute encephalopathy, chronic hyponatremia, complicated UTI, compression fracture T11 vertebra, diabetes mellitus type 2, hypertension and hyperglycemia. A complete description of her medical condition and history along with medications can be found in her medical record. Neuropsychological consultation was requested to provide assistance in the assessment of cognitive and emotional status and to provide recommendations and services. Prior to this recent deterioration in her functioning, she was living with her sister and niece. The patient is reported to have been independent with instrumental activities of daily living including managing medication, finances and nutrition along with driving. However in April, problems began to become more apparent with the way in which she was taking medication and her sister had to intervene to more properly monitor and manage them. Her sister indicates that she stopped eating in 08/2018 and began to refuse taking medication, which required increased intervention by family to ensure she was properly managing her her health. A fall prior to her hospitalization while at [facility] [address] [place] [address] CONSULTATION Name: MATHEUS TRISTAN Room #: 510-P [facility] IN M.R.#: [id number] Admission: 11/22/18 Attend Phys: Daniel Barron MD Discharge: Date of : 34 Report #: [id number] her home was reported because of her legs being very weak. TECHNIQUES UTILIZED: Clinical interview, review of medical records, staff consultation and behavioral observation, family interview -- sister and niece, subtest and mini mental status exam 2. EXAMINATION FINDINGS: The patient appeared drowsy during the assessment. She was unable to describe the reason for her hospitalization or purpose of her current treatment. She was unable to describe current symptoms. Decreased auditory comprehension and verbal expression is suggested. Her sister indicates that the patient was fluent in both Nigerien and Cypriot. 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 She never and is the oldest of 8 children. The patient was not oriented to year, month, day and date or place on the MMSE 2. However, she was oriented to season. She was able to read and follow a single command. The patient was unable to copy a simple geometric design. Her functioning appears withdrawn and mood appears depressed. She is presenting with deficits in multiple neurocognitive modalities. Poor orientation and depressed mood are suggested. She requires much effort to follow 1-step commands. During a transfer, she was observed as requiring multiple specific commands to maintain safety. DIAGNOSTIC IMPRESSION: Major neurocognitive disorder (dementia), unspecified, without behavior disorder -- extent to be determined. The patient may still be presenting with delirium. Unspecified depressive disorder. RECOMMENDATIONS: Consider the use of an antidepressant medication. Consider psychiatric consultation to assist in the selection of an antidepressant. Verbal praise and compliments about participation in therapies. Frequent reality orientation is indicated. I discussed with the family behavioral strategies to improve environmental engagement. A followup neuropsych will be of benefit when the delirium and her current low level of functioning resolves. Thank you very much for allowing me to provide the consultation on this patient. <ELECTRONICALLY SIGNED> By: Esequiel Harrell, PhD 12/03/18 1835 1706 00 Esequiel Harrell, PhD /nt
[2018-12-03 19:50] VITALS: BP 102/55
--- NOTE | 2018-12-04 02:04 | NUR ---
ASSESSMENT: PT ALERT AND ORIENT TIMES FOUR. SPEAKS LIMITED BERMUDIAN BUT IS ABLE TO UNDERSTAND BERMUDIAN BETTER. ABLE TO LET WISHES BE KNOWN. DENIES PAIN, SOB AND N/V. SLEPT MOST OF THE SHIFT. SLOW PROGRESS TOWARDS DC GOALS, WILL CONTINUE TO MONITOR.
[2018-12-04 07:30] VITALS: BP 143/69
--- NOTE | 2018-12-04 14:45 | NUR ---
ASSUMED CARES AT 0700. PT ORIENTED TO PERSON ONLY. CONFUSED AND FORGETFUL. DENIES PAIN. VITALS REMAIN STABLE. LEFT TOE WOUND HEALING, NO DRAINAGE NOTED, SITE CLEANED AND DRESSING CHANGED. PT REMAINS INCONTINENT OF BOTH BOWEL AND BLADDER, CLEANED AND CREAM APPLIED PER ORDER. RADHA AREA EXCORIATION IMPROVING FROM PREVIOUSLY NOTED. ORTHO SHOE IN PLACE WITH ALL TRANSFERS. PT UP WITH 1 MIN ASSIST, GB AND WALKER AND TOLERATED WELL. Q1H VISUAL CHECKS. CALL LIGHT WITHIN REACH. FALL PRECAUTIONS IN PLACE
[2018-12-04 20:20] VITALS: BP 160/78
--- NOTE | 2018-12-05 01:41 | NUR ---
PT ALERT AND ORIENTED X 1. INCONT OF URINE. LEFT FOOT DRESSING C/D/I. PT C/O PAIN IN RIGHT LEG. TYLNOL GIVEN ORDERED. TURNED Q2H. BED ALARM ON FOR SAFETY. PT CHECKED ON HOURLY ROUNDS.
[2018-12-05 05:48] LABS: CALCIUM 8.8 mg/dL (8.5-10.1); CREATININE 0.7 mg/dL (0.6-1.0); POTASSIUM 4.3 mmol/L (3.5-5.1)
[2018-12-05 09:00] VITALS: BP 114/70
--- NOTE | 2018-12-05 16:27 | NUR ---
Up in w/c. Alert and orientated x2. Various staff reporting that she is more dependent with activities and requiring more ques. Pupils equal and reactive to light. Ambulates to bathroom with assistance of walker, staff and gait belt. Head CT planned for today. Denies pain, obeys commands. Breath sounds clear t/o, bilaterally equal. Spontaneous respirations without nasal flaring or retractions. Color pink with brisk capillary refill and +2/+4 palpable peripheral pulses. Reg HR auscultated. Normotensive. Active bowel sounds over soft, flat abdomen. Staff report incontinent of urine per brief and on floor. State urine on floor appears white and question if it is draingage. External labia with erythema, clotrimatozole applied. Slight erythema around anus. No drainage visualized, no malodorous smell identified. Dressing changed on R big toe. Circular wound appears to be healing with white outer ring. Wound with scab approximately 0.5 cm. Cleaned with NS, gentamycin and vaseline drsg applied and then wrapped with gauze and gume wrap. Wearing socks and orthopedic shoes/brace. [address]. Rome here, spoke with pts. sister. Ordered fluconazole PO and UA. 1300 Incontinent of large, semiformed, not liquid brown stool. Sitting in recliner in room without s/o distress. 1600 Sleeping in recliner without s/o distress.
[2018-12-05 18:03] LABS: URINE BILIRUBIN NEGATIVE (Negative); URINE BLOOD 1+ (Negative); URINE CLARITY CLEAR; URINE COLOR YELLOW; URINE GLUCOSE-RANDOM* NEGATIVE (Negative); URINE KETONES NEGATIVE (Negative); URINE NITRITE-REFLEX NEGATIVE (Negative); URINE PROTEIN (DIPSTICK) 2+ (Negative); URINE UROBILINOGEN 0.2 E.U./dl (0.2-1.0)
[2018-12-05 18:05] LABS: URINE LEUKOCYTES-REFLEX 1+ (Negative)
[2018-12-05 18:13] LABS: CASTS None Seen /LPF (None Seen); CRYSTALS None Seen /LPF (None Seen); SQUAMOUS None Seen /LPF (0-3); URINE RBC 3-10 Few /HPF (0-2); URINE WBC-REFLEX 6-15 Few /HPF (0-5)
[2018-12-05 19:37] VITALS: BP 156/67
--- NOTE | 2018-12-05 23:52 | NUR ---
PT ASSESSMENT DONE AND VSS. FALL PRECAUTIONS IN PLACE. SLEEPING WELL. WILL CONTINUE TO MONITOR.
[2018-12-06 08:00] VITALS: BP 175/76
--- NOTE | 2018-12-06 10:39 | H ---
[facility] [place] [address] HISTORY AND PHYSICAL Name: MARIA R HERMATHEUS Room #: 510-P ADM IN M.R.#: [id number] Admission: 11/22/18 Attend Phys: Daniel Barron MD Discharge: Date of : 34 Report #: [id number] THIS REPORT FOR: //name// CC: Daniel Barron DATE OF SERVICE: 11/23/2018 HISTORY AND PHYSICAL AND POST-ADMISSION PHYSICIAN EVALUATION HISTORY OF PRESENT ILLNESS: The patient is now being admitted for acute in-hospital inpatient rehabilitation. Please see my prior consult note dictation. See the full history and physical as per Jeannette Galloway, nurse practitioner. Agree with the history and the physical examination findings as well as the assessment and plan. The patient was noted to have mental status changes upon her original admission on 11/18/2018, being diagnosed with a metabolic encephalopathy with electrolyte abnormalities, the cystitis. She also was noted to have a T11 compression fracture. She has premorbid right first toe osteomyelitis for which she has been on IV antibiotics. The patient was noted to have a significant decline from her premorbid functional status and has been admitted now for acute in-hospital inpatient rehabilitation. PAST MEDICAL HISTORY: Please see the prior history and physical. ALLERGIES: Please see the prior history and physical. HABITS: Please see the prior history and physical. MEDICATIONS: Please see the medication list as noted. REVIEW OF SYSTEMS: She is hard of hearing. No specific complaints of chest pain, shortness of breath or abdominal discomfort. She has had a chronic right toe infection and uses a postop shoe. No other focal extremity pain complaints. PHYSICAL EXAMINATION: GENERAL: She is a thin, 83-year-old female in no obvious distress. VITAL SIGNS: Last recorded temperature 98.2, pulse 80, respirations 18, and blood pressure 151/45. NEUROLOGIC: The patient is alert. There is a definite delay in her responses. She will follow basic 1 step commands. She is pleasant, cooperative. HEAD, EYES, EARS, NOSE, AND THROAT: Facies appeared symmetric. CHEST: Sounded clear to auscultation. CARDIOVASCULAR: Regular rate and rhythm. ABDOMEN: Bowel sounds positive, nontender. EXTREMITIES: Upper extremity strength is probably grade 3/5. Lower extremities, right lower extremity is probably at 3 to 3-. She has the right [address] [place] [address] HISTORY AND PHYSICAL Name: MATHEUS TRISTAN Room #: 510-P [facility] IN ..#: [id number] Admission: 11/22/18 Attend Phys: Daniel Barron MD Discharge: Date of : 34 Report #: [id number] postop shoe and the dressing to the right foot. Left lower extremity is probably a grade 3+. Sensation appeared grossly intact. She needs assistance with functional mobility skills. ASSESSMENT: 1. Toxic metabolic encephalopathy. 2. Medical complexity with generalized debilitation. 3. Chronic hyponatremia. 4. Hypomagnesemia. 5. Right great toe osteomyelitis. 6. T11 compression fracture. 7. Urinary tract infection. 8. Diabetes mellitus type 2. The patient has been admitted for acute in-hospital inpatient rehabilitation. Please see the full admission note dictation. From a postadmission physician evaluation perspective, there are no relevant changes since the preadmission screening. Please see the above review of prior and current medical and functional conditions and comorbidities. Please see the patient's previous and current functional status. As far as risk of complications, the patient has multiple medical comorbidities as noted above. Initial plan of care involves the interdisciplinary acute inpatient rehabilitation program with goal of maximizing her functional independence, so she can hopefully return back to her prior living situation. Measurable functional goals would be for her to improve with her transfers and her overall cognition as well as functional mobility and ADLs to hopefully achieve at least her prior level of function. Would anticipate length of stay of probably at least 10 days to 2 weeks and potentially longer. Potential barriers would include her multiple medical comorbidities and decreased functional status. The patient meets diagnostic criteria for an acute in-hospital inpatient rehabilitation stay. She meets the medical necessity criteria and we will have the [facility] consultant physicians continue to follow. She does have the tolerance for therapies and has appropriate discharge goals back to the home setting. <ELECTRONICALLY SIGNED> By: Daniel Barron MD 12/06/18 1039 [id number] [id number] Daniel Barron MD /[facility]
--- NOTE | 2018-12-06 10:39 | PLAN ---
[facility] [place] [address] REHAB UNIT PLAN OF CARE Name: MATHEUS TRISTAN Room #: 510-P ADM IN M.R.#: [id number] Admission: 11/22/18 Attend Phys: Daniel Barron MD Discharge: Date of : 33 Report #: [id number] THIS REPORT FOR: //name// CC: Daniel Barron DATE OF SERVICE: 11/25/2018 PROGRESS NOTE AND OVERALL PLAN OF CARE SUBJECTIVE: The patient is seen back today in followup. She is in no distress. Temperature 98.4, pulse 78, respirations 18, and blood pressure 124/58. She appears more alert today. Strength is at least a grade 4-/5 both upper and lower extremities. She is progressing in her therapies and transfers are contact guard, gait min assist 25 feet with a front-wheeled walker. Lower extremity dressing is max assist. She does have vwhalpjl-pd-eauaje comprehensive deficits. Her transfers have been mod assist, but have now improved to contact guard. ASSESSMENT: 1. Toxic metabolic encephalopathy. 2. Medical complexity with generalized debilitation. 3. History of chronic hyponatremia. 4. Hypomagnesemia. 5. Right great toe osteomyelitis. The right foot is dressed. 6. T11 compression fracture. 7. Urinary tract infection. 8. Diabetes mellitus type 2. PLAN: The overall plan of care is based on the preadmission screen, post-admission physician evaluation and information garnered from therapy assessments. 1. Estimated length of stay is probably at least 10 days to 2 weeks. 2. Medical prognosis is reasonably good. 3. Anticipated interventions includes the interdisciplinary acute inpatient rehabilitation program. 4. Anticipated functional outcomes would be for the patient to hopefully achieve modified independence again without walker, although she had been using the manual wheelchair at home more and more. Hopefully, she can be independent at least short distances with a walker and improvement as far as ADLs and basic cognition to the point where she can return back to the home setting. 5. Discharge destination would be back to living in a house with her sister. 6. Expected therapy by discipline includes PT, OT and speech [address] [address] REHAB UNIT PLAN OF CARE Name: MATHEUS TRISTAN Room #: 510-P ADM IN ..#: [id number] Admission: 11/22/18 Attend Phys: Daniel Barron MD Discharge: Date of : 34 Report #: [id number] per day each five days a week throughout the duration of the acute inpatient rehabilitation stay. <ELECTRONICALLY SIGNED> By: Daniel Barron MD 12/06/18 1039 [id number] [id number] Daniel Barron MD /nt
--- NOTE | 2018-12-06 13:54 | NUR ---
team meeting, recommendation: re team possible 12/16 if doing better with uti with hh ( pt, ot, st, and nursing).
[2018-12-06 19:35] VITALS: BP 142/67
--- NOTE | 2018-12-06 22:59 | NUR ---
PT ASSESSMENT DONE AND VSS. MED GIVEN AND WELL TOLERATED. FALL PRECAUTIONS IN PLACE. SLEEPING WELL. WILL CONTINUE TO MONITOR.
--- NOTE | 2018-12-07 08:08 | HC ---
[facility] [place] [address] CONSULTATION Name: MATHEUS TRISTAN Room #: 510-P ADM IN M.R.#: [id number] Admission: 11/22/18 Attend Phys: Daniel Barron MD Discharge: Date of : 34 Report #: [id number] THIS REPORT FOR: //name// CC: Daniel Barron DATE OF SERVICE: 11/29/2018 INTRODUCTION: The patient is an 83-year-old female who is being seen for general podiatric care. She is a diabetic with history of peripheral neuropathy and a chronic wound associated with her right great toe. Through a series of various complications including a recent fall, she has been admitted to rehabilitation floor at [facility]. Her sister provides most of her recent history and indicates that the patient has received general nail care by a nautical instrument mechanic in the past and that she is "long overdue." With regard to her foot wound, she is receiving wound care management with wound care team. PAST MEDICAL HISTORY: With regard to this consultation is otherwise unremarkable. PHYSICAL EXAMINATION: Reveals dorsalis pedis and posterior tibial pulses graded at 2/4. Capillary refill time is within normal limits. She lacks protective threshold utilizing the Newton-Rohit monofilament to the mid foot level. Her dermatologic exam reveals no acute findings on the left foot. Her nails are thickened, elongated and show clinical evidence of onychomycosis in varying degrees. The right foot is bandaged and has an Nabeel wrap that extends to the ankle. Her toes are visible and the bandaging was retracted to the level that all toes could be manipulated and visualized. There are no acute findings with regard to the areas in question. Her nails are thickened on this side as well. All nails were debrided today. No additional underlying pathology was noted. IMPRESSION: 1. Diabetes mellitus. 2. Diabetic peripheral neuropathy. 3. Diabetic foot wound, right great toe. 4. Onychodystrophy associated with onychomycosis, bilateral feet. PLAN: The patient's nails were debrided. No additional treatment was required at the time of this meeting. It has been a pleasure having the opportunity of caring for this patient. We will be pleased to follow up with her upon request. <ELECTRONICALLY SIGNED> By: Bebeto Smith DPM 12/07/18807 10 57 Bebeto Smith DPM /nt
[2018-12-07 13:16] LABS: CALCIUM 9.1 mg/dL (8.5-10.1); CREATININE 0.9 mg/dL (0.6-1.0); POTASSIUM 4.6 mmol/L (3.5-5.1)
--- NOTE | 2018-12-07 14:47 | NUR ---
cm visited with pt sister jim rt dcp, and hh. agrees with dcp if she is ok to come home and making process. " she want to use [facility] because she used them before and she like them, responds to them. thank you for your time, this has been a long 7m with this toe and she going down from there and now this"/jim. will cont following as needed for dc needs.
[2018-12-07 19:27] VITALS: BP 105/55
--- NOTE | 2018-12-08 01:13 | NUR ---
PT ALERT AND ORIENTED X 1. TRANSFERRED TO BED AT HS WITH ASSIST X 1. RIGHT FOOT DRESSING CHANGED AT HS. WOUND CLEAN, NO DRAINAGE NOTED. INCONT OF URINE. PT DENIES PAIN OR DISCOMFORT. BED ALARM ON FOR SAFETY. PT APPEARS TO BE SLEEPING ON HOURLY ROUNDS.
[2018-12-08 09:00] VITALS: BP 114/55
[2018-12-08 20:15] VITALS: BP 151/75
--- NOTE | 2018-12-09 02:02 | NUR ---
TURNING SELF SIDE TO SIDE IN BED. HAS BEEN INCONINENT OF URINE. DENIES PAIN
[2018-12-09 07:15] VITALS: BP 173/79
--- NOTE | 2018-12-09 09:02 | NUR ---
ASSUMED CARES AT 0700. B/P 173/79, HR 80. NOT ON ANY BLOOD PRESSURE MEDS. WILL NOTIFY DOCTOR.PT ORIENTED TO PERSON ONLY. CONFUSED AND FORGETFUL. DENIES PAIN. PT REMAINS INCONTINENT OF BOTH BOWEL AND BLADDER, CLEANED AND CREAM APPLIED PER ORDER. RADHA AREA EXCORIATION IMPROVING FROM PREVIOUSLY NOTED. ORTHO SHOE IN PLACE WITH ALL TRANSFERS. PT UP WITH 1 MIN ASSIST, GB AND WALKER. CONTINUE TO BE ON SUPERVISION FOR MEALS. UP IN DINNING ROOM EATING BREAKFAST WITH ST. WILL CONTINUE TO MONITOR B/P.Q1H VISUAL CHECKS. FALL PRECAUTIONS IN PLACE.
[2018-12-09 11:00] VITALS: BP 104/57
[2018-12-09 11:49] VITALS: BP 120/69
[2018-12-09 19:05] VITALS: BP 135/53
--- NOTE | 2018-12-10 04:44 | NUR ---
BP WNL, INCONTINENT URINE, CHANGED AND TURNED, WHICHEVER WAY WE TURN HER SHE WILL TURN HERSELF THE OTHER DIRECTION WITHIN AN HOUR. PLEASANT AND RESTING WELL. OINTMENT TO REDDENED BOTTOM
[2018-12-10 10:23] VITALS: BP 145/50
--- NOTE | 2018-12-10 11:20 | NUR ---
ASSUMED CARE AT 0700. PATIENT IS ALERT AND AWAKE. PATIENT SPEAKS [place]. PATIENT IS UP TO THE W/C AND OUT TO THE DINING ROOM FOR MEALS. SHOE ON RIGHT FOOT. FALL AND SAFETY PROTOCOLS IN PLACE. DENIES ANY PAIN AT THIS TIME. FAMILY HERE. CONTNUES TO PROGRESS SLOWLY TOWARD D/C GOALS. WILL CONTINUE TO MONITER.
[2018-12-10 19:55] VITALS: BP 131/60
--- NOTE | 2018-12-10 22:31 | NUR ---
PT ASSESSMENT DONE AND VSS. FAMILY AT BS. FALL PRECAUTIONS IN PLACE. HOURLY ROUNDING. CALL LIGHT IN REACH. WILL CONTINUE TO MONITOR.
[2018-12-11 07:20] VITALS: BP 139/72
--- NOTE | 2018-12-11 10:36 | NUR ---
ASSUMED CARE OF PT AT 0715. PT IS A&O TO SELF. IS ON ROOM AIR. IS STABLE. DENIES PAIN AT THIS TIME. REPORTED A HEADACHE EARLIER THIS MORNING THAT IMPROVED WITH TYLENOL. IS UP WITH MOD-MAX ASSIST OF 1-2 TO TRANSFER. FALL PRECAUTIONS & HOURLY ROUNDING CONTINUED THIS SHIFT. LABS & VITALS REVIEWED. PT IS CURRENLTY TRANSFERRING TO RECLINER WITH THE ASSISTANCE OF THE MOTOR RUNNER. WILL CONTINUE TO MONITOR. THIS NURSE TO COMPLETE WOUND CARE TO RIGHT GREAT TOE & APPLY MEDICATION TO GROIN AREA.
[2018-12-11 19:24] VITALS: BP 159/72
--- NOTE | 2018-12-12 02:56 | NUR ---
DENIES PAIN. INCONTINCE CARE TO PERINEUM AND BUTTOCKS, PATIENT IS TURNING HERSELF FREQUENTLY
[2018-12-12 04:51] LABS: CALCIUM 9.3 mg/dL (8.5-10.1); CREATININE 0.7 mg/dL (0.6-1.0); POTASSIUM 3.6 mmol/L (3.5-5.1)
[2018-12-12 10:40] VITALS: BP 128/51
[2018-12-12 14:22] LABS: HEMATOCRIT 32.1 % (37.0-47.0); HEMOGLOBIN 10.7 gm/dL (12.0-15.0); MCH 30.7 pg (26.0-34.0); MCHC 33.3 g/dL (28.0-37.0); MCV 92.2 fL (80.0-100.0); RBC 3.48 mil/uL (4.20-5.00); RDW 14.3 % (10.5-14.5); WBC 4.8 thou/uL (4.0-11.0)
--- NOTE | 2018-12-12 16:29 | NUR ---
ASSUMED CARE OF PT AT 0715. DIDN'T SLEEP GOOD LAST NIGHT. THERAPISTS NOTICED PT HAS SOME DECLINED ON ADL. NOTIFIED DR. TOM. CT SCAN ORDERED. DR. LATHAM AWARES OF CT RESULT. NO NEW ORDER AT THIS MOMENT. PT IS A&O TO SELF. IS ON ROOM AIR. IS STABLE. DENIES PAIN AT THIS TIME. IS UP WITH MOD-MAX ASSIST OF 1-2 TO TRANSFER. FALL PRECAUTIONS & HOURLY ROUNDING CONTINUED THIS SHIFT. UP TO DINNING ROOM FOR MEALS. ATE 10% FOR BREAKFAST. ATE BETTER 50% FOR LUNCH WITH STAFF AND FAMILY SUPERVISION. PT UP FOR THERAPY. LABS & VITALS REVIEWED. PT IS CURRENLTY TRANSFERRING TO RECLINER WITH THE ASSISTANCE OF THE SENIOR PRINCIPAL PROCESS ENGINEER. WILL CONTINUE TO MONITOR. WOUND CARE TO RIGHT GREAT TOE CHANGED ORDERED & APPLY MEDICATION TO GROIN ARE, IT IS GETTING BETTER. OFFERED SUPPORTIVE CARE. MEDS GIVEN WITH APPLE SAUCE. INCONT B&B, VOID TRAINING Q2HR. HAD 2X INCONT BLADDER SO FAR. FALL PRECAUTION IN PLACE. CALL LIGHT WITHIN REACH. CHECK FREQUENTLY FOR NEEDS AND SAFETY. WILL CONTINUE TO MONITOR
[2018-12-12 19:35] VITALS: BP 113/57
--- NOTE | 2018-12-12 23:21 | NUR ---
PT ASSESSMENT DONE AND VSS. FALL PRECAUTIONS IN PLACE. SLEEPING WELL. HOURLY ROUNDING. CALL LIGHT IN REACH. WILL CONTINUE TO MONITOR.
[2018-12-13 08:20] VITALS: BP 143/50
--- NOTE | 2018-12-13 10:16 | NUR ---
ASSUMED CARE OF PT AT 0715. PT IS A&O TO SELF. VSS ON RA. DENIES PAIN AT THIS TIME. IS UP WITH MOD-MAX ASSIST OF 1-2 TO TRANSFER. SLEEPY THIS AM. UP TO DINNING ROOM WITH SPEECH THERAPIST. ATE 20% BREAKFAST AND DRANK 80% ENSURE. OFFER TOILETING FREQUENTLY. HAS SOME INCONT BLADDER THIS AM. OFFERED SUPPORTIVE CARE. REASSEMENT PER CHART. BS PRESENT LAST BM WAS 3 DAYS AGO. COLACE GIVEN ORDERED. WILL CONTINUE TO MONTIOR FOR CONSTIPATION. FALL PRECAUTIONS & HOURLY ROUNDING CONTINUED THIS SHIFT. DRESSING CHANGE BY NIGHT NURSE THIS AM ON RIGHT GREAT TOE CHANGED ORDERED & APPLY MEDICATION TO GROIN ARE, IT IS GETTING BETTER. OFFERED SUPPORTIVE CARE. MEDS GIVEN WITH APPLE SAUCE. INCONT B&B, VOID TRAINING Q2HR. FALL PRECAUTION IN PLACE. CALL LIGHT WITHIN REACH. CHECK FREQUENTLY FOR NEEDS AND SAFETY. WILL CONTINUE TO MONITOR
--- NOTE | 2018-12-13 12:25 | NUR ---
team meeting, recommendation: still on mech soft, no mixed consit, with thin liquid. needs allot assistance and needing assist with meals. reported pt closes eyes during meals. family training for dcp. 12/16-01/26 for family training if needed. [facility] ( pt, ot, nurse , st, sw), will need wheel chair. cm notified that pt has rollator with seat not a wheel chair.
--- NOTE | 2018-12-13 14:42 | NUR ---
DISCHARGE PLANNING. ANTICIPATED DISCHARGE TO HOME 12/16-12/20 PER UNIT CM. PATIENT TO DISCHARGE HOME WITH HOME HEALTH SERVICES. PATIENT REFERRAL FAXED TO [facility] PER REQUEST. AWAITING RESPONSE. FOLLOWING.
--- NOTE | 2018-12-13 15:18 | NUR ---
cm visited with pt sister jim and niece after team meeting, discussed option on date and sister would like to cont working with therapy and dc on with hh. active listen during visit. sister verbalized many times that " she will be broken and it is not her fault every since she going down and not up. we will bring her home and see how it goes. it is not her fault she can not help it"/jim. cm passed on information to nurse sugar house supervisor. will cont following as needed for dc needs.
[2018-12-13 19:10] VITALS: BP 121/54
--- NOTE | 2018-12-14 03:48 | NUR ---
BED ALARM ON FOR SAFETY. PATIENT IS INCONTINENT OF URINE, TURNS SELF FREQUENTLY, DENIES PAIN
[2018-12-14 07:00] VITALS: BP 122/62
--- NOTE | 2018-12-14 10:18 | NUR ---
ASSUMED CARE AT 0700. PATIENT IS ALERT AND ORIENTED TO PERSON. PATIENT BLOOM'S, ZIPPER SETTER LOCKSTITCH ARE EQUAL. LUNGS ARE CLEAR. ABD IS SOFT WITH BSX4. UP ON BSC TO VOID CARRI COLORED URINE. UP TO THE DINING ROOM FOR MEALS. SISTER GAVE MEDS WITH NURSE AND ST SUPERVISION. MEDS GIVEN WHOLE IN APPLESAUCE. FALL AND SAFETY PROTOCOLS IN PLACE. DENIES C/O PAIN. CONTINUES TO PROGRESS TOWARDS D/C GOALS. WILL CONTINUE TO MONITER.
[2018-12-14 19:57] VITALS: BP 131/81
--- NOTE | 2018-12-15 01:38 | NUR ---
REMAINS INCONTINENT OF URINE, RADHA-CARE AND PAD CHANGES. TURNS SELF FREQUENTLY. PLAN TO START PROVIGIL THIS MORNING.
--- NOTE | 2018-12-15 11:34 | NUR ---
ASSUMED CARE AT 0700. PATIENT IS ALERT AND ORIENTED TO PERSON. PATIENT BLOOM, WHOLESALE ACCOUNT MANAGER ARE EQUAL. LUNGS ARE CLEAR. ABD IS SOFT WITH BSX4. UP T0 THE BSC TO VOID ABMER COLORED URINE. FALL AND SAFETY PROTOCOLS IN PLACE. DENIES ANY PAIN. CONTINUES TO PROGESS SLOWLY TOWARDS D/C GOALS. DRESSING CHANGE COMPLETED TO RIGHT FOOT. UP IN W/C AND OUT TO DINING ROOM FOR MEALS. WILL CONTINUE TO MONITER.
--- NOTE | 2018-12-15 15:07 | NUR ---
PT'S SISTER WILL LOOKED AT PT'S RT GREAT TOE TODAY, AND WAS CONCERNED THAT THERE WAS A NEW BLISTER TO THE TOP OF THE TOE. SHE ALSO NOTED THAT THERE WAS "DIRT" BETWEEN THE TOES, AND SHE FEELS THAT SOMEONE IS NOT CLEANING WELL. IT WAS NOTED THAT THE SOCK MAY HAVE BEEN TOO TIGHT. THE SOCK WAS REMOVED AWAY FROM THE BLISTERED AREA. NM CALLING WOUND CARE NURSE REGARDING THE BLISTERED AREA TO ENSURE THAT HE SEES IT TOMORROW.
--- NOTE | 2018-12-15 15:13 | NUR ---
1500 SISTER INSTRUCTED ON DRESSING CHANGE TO RIGHT BIG TOE WOUND. SISTER WAS ABLE CHANGE DRESSING WITHOUT DIFFICULTY. SOCK WAS LEFT LOOSE AROUND THE BIG TOE SO THE BLISTER WILL RESOLVE. WOUND CARE NURSE TO EVALUATE LATER TODAY OR IN A.M.
[2018-12-15 20:00] VITALS: BP 147/67
--- NOTE | 2018-12-15 22:55 | NUR ---
PT ASSESSMENT DONE AND VSS. MEDICATION GIVEN AND WELL TOLERATED. FALL PRECAUTIONS IN PLACE. SLEEPING WELL. HOURLY ROUNDING. CALL LIGHT IN REACH. WILL CONTINUE TO MONITOR.
[2018-12-16 09:38] VITALS: BP 97/52
[2018-12-16 12:43] VITALS: BP 128/60
--- NOTE | 2018-12-16 16:37 | NUR ---
ASSUMED CARES AT 0700. PT ORIENTED TO SELF ONLY, FORGETFUL AND CONFUSED. DENIES PAIN. VITALS REMAIN STABLE. PT INCONTINENT OF BLADDER, URINE IS DARK YELLOW WITH FOUL ODOR, ORDERS RECEIVED FOR A UA, AWAITING TO COLLECT SPECIMEN. RADHA AREA CLEANED AND CLOTRIMAZOLE CREAM APPLIED, PT REPOSITIONED Q2H. DRESSING CHANGE TO RIGHT BIG TOE CHANGED. UP WITH 1 MOD-MAX ASSIST, GB AND WALKER AND TOLERATED WELL. Q1H VISUAL CHECKS. CALL LIGHT WITHIN REACH. FALL PRECAUTIONS IN PLACE
[2018-12-16 19:40] VITALS: BP 152/53
--- NOTE | 2018-12-16 23:42 | NUR ---
PT ASSESSMENT COMPLETED AND VSS. MEDS GIVEN ORDERED AND WELL TOLERATED. FALL PRECAUTIONS IN PLACE. PT INC OF LARGE AMOUNTS OF URINE. PT MOVING BACK AND FORTH IN BED DURING THE NIGHT. PT APPEARS COMFORTABLE AND DENIES PAIN. SLEEPING WELL. WILL CONTINUE TO MONITOR FREQUENTLY.
[2018-12-17 05:35] LABS: URINE BILIRUBIN NEGATIVE (Negative); URINE BLOOD 3+ (Negative); URINE CLARITY CLEAR; URINE COLOR YELLOW; URINE GLUCOSE-RANDOM* NEGATIVE (Negative); URINE KETONES NEGATIVE (Negative); URINE LEUKOCYTES 2+ (Negative); URINE NITRITE NEGATIVE (Negative); URINE PROTEIN (DIPSTICK) 2+ (Negative); URINE UROBILINOGEN 0.2 E.U./dl (0.2-1.0)
[2018-12-17 05:42] LABS: BACTERIA >30 Many /HPF (None Seen); CASTS None Seen /LPF (None Seen); CRYSTALS None Seen /LPF (None Seen); MUCUS None Seen strn/LPF (None Seen); SQUAMOUS None Seen /LPF (0-3); URINE RBC >20 Many /HPF (0-2); URINE WBC >25 Many /HPF (0-5)
[2018-12-17 07:15] VITALS: BP 138/64
--- NOTE | 2018-12-17 09:30 | NUR ---
ASSUMED CARE AT 0700. PATIENT IS ALERT AND ORIENTED X1 TO PERSON. ONLY SPEAKS YEMENI, BUT DOES UNDERSTAND SOME KAZAKH. PATIENT BLOOM'S, FUR FINISHER ARE EQUAL. LUNGS ARE CLEAR. ABD IS SOFT WITH BSX4. VOIDS PER BSC. PATIENT HAS OCCASIONAL INCONTINENCE. FALL AND SAFETY PROTOCOLS IN PLACE. DENIES PAIN AT THIS TIME. DRESSING CHANGE COMPLETED TO RIGHT FOOT. UP IN W/C AND OUT TO DINING ROOM FOR MEALS. WILL CONTINUE TO MONITER.
[2018-12-17 20:00] VITALS: BP 149/90
--- NOTE | 2018-12-17 21:35 | NUR ---
PT ASSESSMENT DONE AND VSS. FALL PRECAUTIONS IN PLACE. HOURLY ROUNDING. CALL LIGHT IN REACH. PT TURNS SELF IN BED. WILL CONTINUE TO MONITOR.
[2018-12-18 07:56] VITALS: BP 143/83
--- NOTE | 2018-12-18 13:55 | NUR ---
Has been up in w/c for morning and noon meal, she eats well, feeds self, she is alert and oriented x1 to name, she shakes head to yes or no, but not sure how much she actually comprehends, her sister was here and watched dressing change to right foot, she also wants more assistance with transfers and stated she is taking her home on Wednesday. From what I witnessed today, I don't feel she is ready to take patient home.
[2018-12-18 19:50] VITALS: BP 126/53
--- NOTE | 2018-12-19 02:29 | NUR ---
HOURLY CHECKS FOR WETNESS. PAD CHANGED AND RADHA-CARE. PATIENT TURNS SELF IN BED. DENIES PAIN
[2018-12-19 08:00] VITALS: BP 126/64
--- NOTE | 2018-12-19 10:09 | NUR ---
All parties are anticipating dc to home with family tomorrow. [facility] aware of referral and will be out to see the within 48hrs of dc. Will fax final orders to their intake dept tomorrow. W/c, cusion and sliding board has been ordered through [facility]. Their liason is working on the referral to ensure delievery prior to dc tomorrow. Rehab supercharger mechanic nofitied of documentation needs for dme. Will follow.
[2018-12-19 10:15] VITALS: BP 126/64
[2018-12-19 10:23] VITALS: BP 126/64
--- NOTE | 2018-12-19 11:07 | NUR ---
Received awake on bed. Due medications given as prescribed, able to swallow meds one-by-one with apple sauce, aspiration precaution observed. Vital signs stable. With sister at bedside during the day. On room air. On blood sugar monitoring- taken and recorded, with sliding scale insulin prescribed. With on and off incontinence- able to use bedside commode with assistance, and gait belt. With wound at R great toe- for daily dressing changes. For possible discharge tomorrow- CM aware and coordination with other parties. Assisted in ADLs, eating and drinking- ST present during breakfast. Falls risk- falls bundle in place.
[2018-12-19 19:37] VITALS: BP 144/77
--- NOTE | 2018-12-19 22:30 | NUR ---
PATIENT INCONTINENT TWICE THIS SHIFT, URINE CULTURE OBTAINED WITH STERILE TECHNIQUE AND PATIENT'S COOPERATION.
--- NOTE | 2018-12-20 04:10 | NUR ---
INCONTINENT OF URINE, PAD CHANGED APPROX EVERY 90 MINUTES. PATIENT TURNING SELF IN BED WITHOUT PROMPTING. OTHERWISE RESTING WELL IN BED AFTER TURN PIVOT TRANSFER FROM CHAIR TO BED LAST EVENING.
[2018-12-20 08:00] VITALS: BP 131/70
[2018-12-20] MEDS ORDERED: COZAAR 25 MG TA25 M1 PO (12:38)
[2018-12-20] MEDS ORDERED: VOLTAREN GEL 1100 G1 TOP (12:38)
[2018-12-20] MEDS ORDERED: PROVIGIL 100 M100 MG PO (12:38)
[2018-12-20] MEDS ORDERED: GENTAMICIN SULF15 GM TOP (12:39)
--- NOTE | 2018-12-20 13:17 | NUR ---
DISCHARGE ORDERS COMPLETED. PATIENT DISCHARGING TO HOME WITH [facility]. DISCHARGE/HOME HEALTH ORDERS FAXED TO [facility]TAKE, VERIFIED RECEIVED. KARYN TO FACILITATE PATIENTS HH NEEDS. UNIT RN NOTIFIED.
--- NOTE | 2018-12-20 13:20 | NUR ---
team meeting, recommendation: cont with dc today, [facility] , wheel chair, slide board and wheel chair cushion. sister jim has been working with therapy on education for dc home. [facility] brought wheel chair. cont following with dr orlando and follow up with neuro outpt.
[2018-12-20 15:04] VITALS: BP 126/64
--- NOTE | 2018-12-20 16:11 | NUR ---
ASSUMED CARE AT 0700. SHIFT ASSESSMENT DONE, MEDS GIVEN, VSS. DENIES PAIN, NAUSEA, VOMITING. DISCHARGE ORDER RECEIVED, WOUND CARE PHOTO TAKEN. DISCHARGE MEDS GIVEN. LEFT THE UNIT AT 1545 WITH NURSING STAFF.
== END 2018-12-20 17:50 | disposition home health service (06) | DRG 70 ==
PROVIDERS: Internal Medicine Geriatric Medicine; Nurse Practitioner Family; ADMIT Physical Medicine & Rehabilitation
PROC: 0HBRXZZ Excision of Toe Nail, External Approach (ICD-10-PCS; principal; 2018-12-07)
DX: G93.41 Metabolic encephalopathy (principal); S06.5X9A Traumatic subdural hemorrhage with loss of consciousness of unspecified duration, initial encounter; M86.8X7 Other osteomyelitis, ankle and foot; N39.0 Urinary tract infection, site not specified; E87.1 Hypo-osmolality and hyponatremia; M48.54XA Collapsed vertebra, not elsewhere classified, thoracic region, initial encounter for fracture; E44.0 Moderate protein-calorie malnutrition; Z68.1 Body mass index [BMI] 19.9 or less, adult; R53.81 Other malaise; E11.69 Type 2 diabetes mellitus with other specified complication; I10 Essential (primary) hypertension; M81.0 Age-related osteoporosis without current pathological fracture; E83.42 Hypomagnesemia; F01.50 Vascular dementia, unspecified severity, without behavioral disturbance, psychotic disturbance, mood disturbance, and anxiety; F32.9 Major depressive disorder, single episode, unspecified; E11.42 Type 2 diabetes mellitus with diabetic polyneuropathy; L60.3 Nail dystrophy; E11.621 Type 2 diabetes mellitus with foot ulcer; L97.519 Non-pressure chronic ulcer of other part of right foot with unspecified severity; B36.9 Superficial mycosis, unspecified; W18.39XA Other fall on same level, initial encounter; Y93.89 Activity, other specified; Z68.21 Body mass index [BMI] 21.0-21.9, adult; Z23 Encounter for immunization; Z88.2 Allergy status to sulfonamides; Z88.1 Allergy status to other antibiotic agents; Z79.899 Other long term (current) drug therapy; Z79.84 Long term (current) use of oral hypoglycemic drugs; Y92.89 Other specified places as the place of occurrence of the external cause; Y99.8 Other external cause status
CPT/HCPCS: 10112

== ENCOUNTER → 2018-12-26 | Outpatient (CLI) | payer OTHER, MEDICARE ==
[~2018-12-26] MED LIST changes: +GENTAMICIN SULF15 GM TOP; +PROVIGIL 100 M100 MG PO; +VOLTAREN GEL 1100 G1 TOP
== END ==
LOC: CAT 14:02
DX: S06.5X9A Traumatic subdural hemorrhage with loss of consciousness of unspecified duration, initial encounter (principal); R90.82 White matter disease, unspecified; X58.XXXA Exposure to other specified factors, initial encounter; Y93.89 Activity, other specified; Y92.89 Other specified places as the place of occurrence of the external cause; Y99.8 Other external cause status